=== PATIENT | male | born 1995 | race Two or more races ===

== ENCOUNTER 2017-07-30 18:21 | Emergency (ER) | payer BC ==
[2017-07-30 18:49] VITALS: BP 145/72
[2017-07-30] MEDS ORDERED: cefTRIAXone 1 GM, Lidocaine 1% 2.1 ML IM ONE ×2 (19:24)
--- NOTE | 2017-07-30 19:30 | EDM.PDOC ---
ED HPI GENERAL MEDICAL PROBLEM - General Chief Complaint: General Stated Complaint: LOW MIDDLE BACK PAIN/LUMP Time Seen by Provider: 07/30/17 19:11 Source of Information: Reports: Patient, RN Notes Reviewed History Limitations: Reports: No Limitations - History of Present Illness INITIAL COMMENTS - FREE TEXT/NARRATIVE: 22-year-old gentleman presents emergency department today with complaint of painful lump in his low back states had for last couple days he is not had any fevers it is very tender to touch he has had this one time before that which was opened up and drained - Related Data Allergies Allergy/AdvReac Type Severity Reaction Status Date / Time No Known Allergies Allergy Verified 07/30/17 18:53 Home Meds: Home Meds NK [No Known Home Meds] 07/30/17 [History] Past Medical History HEENT History: Reports: Impaired Vision Psychiatric History: Reports: ADHD Endocrine/Metabolic History: Reports: Obesity/BMI 30+ Dermatologic History: Reports: Other (See Below) Other Dermatologic History: CYSTS ON NECK AND BUTTOCKS - Infectious Disease History Infectious Disease History: Reports: Chicken Pox - Past Surgical History HEENT Surgical History: Reports: Tonsillectomy Social & Family History - Tobacco Use Smoking Status *Q: Never Smoker Second Hand Smoke Exposure: No - Caffeine Use Caffeine Use: Reports: None - Alcohol Use Days Per Week of Alcohol Use: 0 - Recreational Drug Use Recreational Drug Use: No ED ROS GENERAL - Review of Systems Review Of Systems: See Below Constitutional: Denies: Fever, Chills Skin: Reports: Rash, Lesions, Lumps ED EXAM, GENERAL - Physical Exam Exam: See Below Free Text/Narrative:: Examination of the integument system he does have an erythematous area at the top of the gluteal cleft it is exquisitely tender to the touch I don't appreciate any drainage at this time Course - Vital Signs Last Recorded V/S: Last Vital Signs Temp 97.2 F 07/30/17 18:54 Pulse 94 07/30/17 18:54 Resp 16 07/30/17 18:54 BP 145/72 H 07/30/17 18:54 Pulse Ox 97 07/30/17 18:54 - Orders/Labs/Meds Meds: Medications Discontinued Medications Generic Name Dose Route Start Last Admin Trade Name Freq PRN Reason Stop Dose Admin Ceftriaxone Sodium 1 gm/ 0 gm 07/30/17 19:24 Lidocaine HCl 2.1 ml IM 07/30/17 19:25 ONETIME ONE Departure - Departure Time of Disposition: 19:29 Disposition: Home, Self-Care 01 Condition: Good Clinical Impression: Pilonidal cyst - Discharge Information Referrals: PCP,None [Primary Care Provider] - Additional Instructions: Start antibiotics tomorrow, take full course, please follow-up to the essential clinic call tomorrow morning at 7:50 AM, for an appointment time with Dr. Gonzalez general surgery - Assessment/Plan Plan: Assessment Acuity = acute Site and laterality = probable pilonidal cyst Etiology = unclear etiology Manifestations = none Location of injury = Home Lab values = none Plan Given Rocephin 1 g IM 1, prescription written for Keflex 500 mg by mouth 3 times a day 7 days called and discussed the case with Dr. Gonzalez general surgery he agreed to see him in clinic tomorrow morning Patient was in agreement with the plan all questions were answered, they were instructed to return to the emergency department or call for worsening symptoms. This note was dictated using [employer] voice recognition software please call with any questions.
== END 2017-07-30 19:55 | disposition home or self-care (01) ==
LOC: JP.ED 18:21
DX: L05.91 Pilonidal cyst without abscess (principal)
CPT/HCPCS: 96372; 99283; J0696

== ENCOUNTER 2018-03-14 18:31 | Emergency (ER) | payer BC ==
[2018-03-14 19:34] VITALS: BP 110/68
--- NOTE | 2018-03-14 19:59 | EDM.PDOC ---
ED HPI GENERAL MEDICAL PROBLEM - General Chief Complaint: Skin Complaint Stated Complaint: BUMP ON BACK Time Seen by Provider: 03/14/18 19:36 Source of Information: Reports: Patient History Limitations: Reports: No Limitations - History of Present Illness INITIAL COMMENTS - FREE TEXT/NARRATIVE: 22 yo male presents with pain at tail bone that has been present for 6 hours. this has happened twice before most recent he states was a couple years ago and resolved with oral antibiotics. In 2015 he was seen in the ER and it was I+ Ded. denies fever chills or general ill feeling - Related Data Allergies Allergy/AdvReac Type Severity Reaction Status Date / Time No Known Allergies Allergy Verified 03/14/18 19:28 Home Meds: Home Meds NK [No Known Home Meds] 07/30/17 [History] Past Medical History HEENT History: Reports: Impaired Vision Psychiatric History: Reports: ADHD Endocrine/Metabolic History: Reports: Obesity/BMI 30+ Dermatologic History: Reports: Other (See Below) Other Dermatologic History: CYSTS ON NECK AND BUTTOCKS - Infectious Disease History Infectious Disease History: Reports: Chicken Pox - Past Surgical History HEENT Surgical History: Reports: Tonsillectomy Social & Family History - Tobacco Use Smoking Status *Q: Never Smoker - Caffeine Use Caffeine Use: Reports: None ED ROS GENERAL - Review of Systems Review Of Systems: See Below Constitutional: Denies: Fever, Chills, Malaise Respiratory: Denies: Shortness of Breath, Wheezing Cardiovascular: Denies: Chest Pain ED EXAM, SKIN/RASH Exam: See Below Exam Limited By: No Limitations General Appearance: Alert, WD/WN, No Apparent Distress Respiratory/Chest: No Respiratory Distress Skin: Other (moderatly tender 1 cm indurated area at tail bone. no flucuance noted) Course - Vital Signs Last Recorded V/S: Last Vital Signs Temp 36.3 C 03/14/18 19:33 Pulse 78 03/14/18 19:33 Resp 14 03/14/18 19:33 BP 110/68 03/14/18 19:33 Pulse Ox 94 L 03/14/18 19:33 Departure - Departure Time of Disposition: 19:56 Disposition: Home, Self-Care 01 Condition: Good Clinical Impression: Pilonidal cyst - Discharge Information Referrals: PCP,None [Primary Care Provider] - Additional Instructions: if not resolved in 48 hours follow-up with surgeon or primary care provider ice for pain control Keflex 500 mg twice daily for 7 days
== END 2018-03-14 20:08 | disposition home or self-care (01) ==
LOC: JP.ED 18:31
DX: L05.91 Pilonidal cyst without abscess (principal)
CPT/HCPCS: 99283

== ENCOUNTER 2019-02-04 18:14 | Emergency (ER) | payer BC ==
[2019-02-04 19:08] VITALS: BP 143/77
[2019-02-04] MEDS ORDERED: Famotidine 20 MG Tab PO ONE (19:36)
--- NOTE | 2019-02-04 19:40 | EDM.PDOC ---
ED HPI GENERAL MEDICAL PROBLEM - General Chief Complaint: Flank Pain Stated Complaint: SIDE PAIN BOTH SIDES WITH BOWEL MOVEMENT Time Seen by Provider: 02/04/19 19:36 Source of Information: Reports: Patient History Limitations: Reports: No Limitations - History of Present Illness INITIAL COMMENTS - FREE TEXT/NARRATIVE: pt has pain in the flank area when he has a BM. He states his stools have not been different or more frequent. He He states the pain only is happening when he has a bm. He is have alot of acid taste in his throat. This has just started, . He admits to having drainage going down the back of his throat. Onset: Gradual, Other ( The pain on the sides with a bm has just started in the last 2-3 days. ) Duration: Hour(s): Location: Reports: Abdomen Associated Symptoms: Reports: Other (pt has been having normal bms. ) Flank Pain Score (Numeric/FACES): 5 Right Chest Pain Score (Numeric/FACES): 7 - Related Data Allergies Allergy/AdvReac Type Severity Reaction Status Date / Time No Known Allergies Allergy Verified 02/04/19 19:02 Home Meds: Home Meds NK [No Known Home Meds] 07/30/17 [History] Past Medical History HEENT History: Reports: Impaired Vision Gastrointestinal History: Reports: GERD Psychiatric History: Reports: ADHD Endocrine/Metabolic History: Reports: Obesity/BMI 30+ Dermatologic History: Reports: Other (See Below) Other Dermatologic History: CYSTS ON NECK AND BUTTOCKS - Infectious Disease History Infectious Disease History: Reports: Chicken Pox - Past Surgical History HEENT Surgical History: Reports: Tonsillectomy Social & Family History - Tobacco Use Smoking Status *Q: Never Smoker - Caffeine Use Caffeine Use: Reports: None - Recreational Drug Use Recreational Drug Use: No ED ROS GENERAL - Review of Systems Review Of Systems: See Below Constitutional: Reports: No Symptoms HEENT: Reports: No Symptoms Respiratory: Reports: No Symptoms Cardiovascular: Reports: No Symptoms Endocrine: Reports: No Symptoms GI/Abdominal: Reports: Abdominal Pain, Other (pain on the sides when he has a bm. ) : Reports: No Symptoms Musculoskeletal: Reports: No Symptoms Skin: Reports: No Symptoms ED EXAM, GI/ABD - Physical Exam Exam: See Below Text/Narrative:: pt has been having heart burn with a acid feeling in his throat. He has been having pain on the side when he has a bm. This does go away after the bm is finished. His bm has not been different. Exam Limited By: No Limitations General Appearance: Alert, No Apparent Distress, Other (pt is not nauseated. pupils are equal and reactive. ) Ears: Normal TMs Nose: Normal Inspection Throat/Mouth: Normal Inspection Head: Atraumatic Neck: Normal Inspection Respiratory/Chest: No Respiratory Distress Cardiovascular: Regular Rate, Rhythm GI/Abdominal Exam: Soft, Non-Tender, Other (pt is experiencing heart burn. ) (Male) Exam: Deferred Rectal (Males) Exam: Deferred Back Exam: Normal Inspection Extremities: Normal Inspection Neurological: Alert, Oriented, Normal Cognition Psychiatric: Normal Affect Course - Vital Signs Last Recorded V/S: Last Vital Signs Temp 37.0 C 02/04/19 19:07 Pulse 87 02/04/19 19:07 Resp 17 02/04/19 19:07 BP 143/77 H 02/04/19 19:07 Pulse Ox 97 02/04/19 19:07 - Orders/Labs/Meds Labs: Laboratory Tests 02/04/19 02/04/19 02/04/19 Range/Units 19:35 19:35 19:35 WBC 7.4 (4.5-11.0) K/uL RBC 5.31 (4.30-5.90) M/uL Hgb 13.9 (12.0-15.0) g/dL Hct 45.5 (40.0-54.0) % MCV 86 (80-98) fL MCH 26 L (27-31) pg MCHC 31 L (32-36) % Plt Count 343 (150-400) K/uL Neut % (Auto) 67 H (36-66) % Lymph % (Auto) 25 (24-44) % Mcdonald % (Auto) 5 (2-6) % Eos % (Auto) 2 (2-4) % Baso % (Auto) 0 (0-1) % Sodium 139 L (140-148) mmol/L Potassium 4.4 (3.6-5.2) mmol/L Chloride 103 (100-108) mmol/L Carbon Dioxide 26 (21-32) mmol/L Anion Gap 14.4 H (5.0-14.0) mmol/L BUN 14 (7-18) mg/dL Creatinine 0.9 (0.8-1.3) mg/dL Est Cr Clr Drug Dosing 127.65 mL/min Estimated GFR (MDRD) > 60 (>60) Glucose 95 (74-106) mg/dL Calcium 9.0 (8.5-10.1) mg/dL Total Bilirubin 0.2 (0.2-1.0) mg/dL AST 26 (15-37) U/L ALT 50 (12-78) U/L Alkaline Phosphatase 90 (46-116) U/L C-Reactive Protein 1.92 H (0.0-0.3) mg/dL Total Protein 8.0 (6.4-8.2) g/dL Albumin 3.4 (3.4-5.0) g/dL Globulin 4.6 H (2.3-3.5) g/dL Albumin/Globulin Ratio 0.7 L (1.2-2.2) Urine Color Urine Appearance Urine pH (4.5-8.0) Ur Specific Points (1.008-1.030) Urine Protein (NEGATIVE) mg/dL Urine Glucose (UA) (NEGATIVE) mg/dL Urine Ketones (NEGATIVE) mg/dL Urine Occult Blood (NEGATIVE) Urine Nitrite (NEGAITVE) Urine Bilirubin (NEGATIVE) Urine Urobilinogen (NORMAL) mg/dL Ur Leukocyte Esterase (NEGATIVE) Urine RBC (0-5) Urine WBC (0-5) Ur Epithelial Cells Amorphous Sediment Urine Bacteria Urine Mucus 02/04/19 Range/Units 19:52 WBC (4.5-11.0) K/uL RBC (4.30-5.90) M/uL Hgb (12.0-15.0) g/dL Hct (40.0-54.0) % MCV (80-98) fL MCH (27-31) pg MCHC (32-36) % Plt Count (150-400) K/uL Neut % (Auto) (36-66) % Lymph % (Auto) (24-44) % Mcdonald % (Auto) (2-6) % Eos % (Auto) (2-4) % Baso % (Auto) (0-1) % Sodium (140-148) mmol/L Potassium (3.6-5.2) mmol/L Chloride (100-108) mmol/L Carbon Dioxide (21-32) mmol/L Anion Gap (5.0-14.0) mmol/L BUN (7-18) mg/dL Creatinine (0.8-1.3) mg/dL Est Cr Clr Drug Dosing mL/min Estimated GFR (MDRD) (>60) Glucose (74-106) mg/dL Calcium (8.5-10.1) mg/dL Total Bilirubin (0.2-1.0) mg/dL AST (15-37) U/L ALT (12-78) U/L Alkaline Phosphatase (46-116) U/L C-Reactive Protein (0.0-0.3) mg/dL Total Protein (6.4-8.2) g/dL Albumin (3.4-5.0) g/dL Globulin (2.3-3.5) g/dL Albumin/Globulin Ratio (1.2-2.2) Urine Color Yellow Urine Appearance Clear Urine pH 5.0 (4.5-8.0) Ur Specific Points 1.030 (1.008-1.030) Urine Protein Negative (NEGATIVE) mg/dL Urine Glucose (UA) Normal (NEGATIVE) mg/dL Urine Ketones Negative (NEGATIVE) mg/dL Urine Occult Blood Negative (NEGATIVE) Urine Nitrite Negative (NEGAITVE) Urine Bilirubin Negative (NEGATIVE) Urine Urobilinogen Normal (NORMAL) mg/dL Ur Leukocyte Esterase Negative (NEGATIVE) Urine RBC Not seen (0-5) Urine WBC Not seen (0-5) Ur Epithelial Cells Rare Amorphous Sediment Not seen Urine Bacteria Few Urine Mucus Few Meds: Medications Discontinued Medications Generic Name Dose Route Start Last Admin Trade Name Freq PRN Reason Stop Dose Admin Famotidine 20 mg 02/04/19 19:36 02/04/19 19:46 Pepcid PO 02/04/19 19:37 20 mg ONETIME ONE Administration - Re-Assessments/Exams Free Text/Narrative Re-Assessment/Exam: 02/04/19 20:43 pt appeared to be mikldly dehydrated. He had a clear urine. His labs appeared normal. Wbc was normal. He was given pepcid for the heart burn, Departure - Departure Time of Disposition: 20:35 Disposition: Home, Self-Care 01 Condition: Fair Clinical Impression: Heartburn, Spasm of bowel - Discharge Information Referrals: PCP,None [Primary Care Provider] - Forms: ED Department Discharge Care Plan Goals: push fluids, keep bowels regular, use prilosec 20mg daily for heart burn,if side pain is persistent check with regular Dr for further workup.
== END 2019-02-04 20:49 | disposition home or self-care (01) ==
LOC: JP.ED 18:14
DX: R12 Heartburn (principal)
CPT/HCPCS: 36415; 80053; 81001; 85025; 86140; 99284; A9270

== ENCOUNTER 2019-11-27 20:41 | Emergency (ER) | payer BC ==
[2019-11-27 21:08] VITALS: BP 147/79; PULSE 104
--- NOTE | 2019-11-27 21:26 | EDM.PDOC ---
ED HPI GENERAL MEDICAL PROBLEM - General Chief Complaint: Respiratory Problem Stated Complaint: COLD Time Seen by Provider: 11/27/19 21:20 Source of Information: Reports: Patient, RN Notes Reviewed History Limitations: Reports: No Limitations - History of Present Illness INITIAL COMMENTS - FREE TEXT/NARRATIVE: 24-year-old gentleman presents emergency department today with complaint of phlegm production and cough states his been sick for about 2 days no fevers no shortness of breath no chest pain Upper Back Pain Score (Numeric/FACES): 3 - Related Data Allergies Allergy/AdvReac Type Severity Reaction Status Date / Time No Known Allergies Allergy Verified 11/27/19 21:02 Home Meds: Home Meds NK [No Known Home Meds] 07/30/17 [History] Past Medical History HEENT History: Reports: Impaired Vision Gastrointestinal History: Reports: GERD Psychiatric History: Reports: ADHD Endocrine/Metabolic History: Reports: Obesity/BMI 30+ Dermatologic History: Reports: Other (See Below) Other Dermatologic History: CYSTS ON NECK AND BUTTOCKS - Infectious Disease History Infectious Disease History: Reports: Chicken Pox - Past Surgical History HEENT Surgical History: Reports: Tonsillectomy Social & Family History - Tobacco Use Smoking Status *Q: Never Smoker - Caffeine Use Caffeine Use: Reports: Coffee Caffeine Use Comment: occasional coffee - Recreational Drug Use Recreational Drug Use: No ED ROS GENERAL - Review of Systems Review Of Systems: See Below Constitutional: Denies: Fever, Chills HEENT: Reports: No Symptoms Respiratory: Reports: Cough, Sputum. Denies: Shortness of Breath Cardiovascular: Reports: No Symptoms GI/Abdominal: Reports: No Symptoms ED EXAM, GENERAL - Physical Exam Exam: See Below Exam Limited By: No Limitations General Appearance: Alert, WD/WN, No Apparent Distress Ears: Normal External Exam, Normal Canal, Hearing Grossly Normal, Normal TMs Nose: Normal Inspection Throat/Mouth: Normal Inspection, Normal Lips, Normal Teeth, Normal Gums, Normal Oropharynx, Normal Voice, No Airway Compromise Head: Atraumatic, Normocephalic Neck: Normal Inspection, Supple, Non-Tender, Full Range of Motion Respiratory/Chest: No Respiratory Distress, Lungs Clear, Normal Breath Sounds, No Accessory Muscle Use, Chest Non-Tender Cardiovascular: Regular Rate, Rhythm, No Murmur Course - Vital Signs Last Recorded V/S: Last Vital Signs Temp 97.1 F 11/27/19 21:02 Pulse 104 H 11/27/19 21:02 Resp 18 11/27/19 21:02 BP 147/79 H 11/27/19 21:02 Pulse Ox 96 11/27/19 21:02 Departure - Departure Time of Disposition: 21:25 Disposition: Home, Self-Care 01 Condition: Fair Clinical Impression: Viral syndrome - Discharge Information Instructions: Viral Respiratory Infection, [id number] Referrals: PCP,None [Primary Care Provider] - Forms: ED Department Discharge, ED Return to Work/School Form Additional Instructions: Use Tylenol or Motrin as needed for aches and pains try Mucinex for the sputum production, please followup with your primary care provider in 3-5 days if not better, please call return to the emergency department with worsening of symptoms. Sepsis Event Note - Evaluation Sepsis Screening Result: No Definite Risk - Focused Exam Vital Signs: Vital Signs Temp Pulse Resp BP Pulse Ox 11/27/19 21:02 97.1 F 104 H 18 147/79 H 96 Date Exam was Performed: 11/27/19 Time Exam was Performed: 21:23 - Assessment/Plan Plan: Assessment Acuity = acute Site and laterality = viral syndrome Etiology = unknown Manifestations = none Location of injury = Home Lab values = none Plan Symptomatic care follow-up primary care 3 to 5 days if not better This note was dictated using [employer] voice recognition software please call with any questions on syntax or grammar.
== END 2019-11-27 21:30 | disposition home or self-care (01) ==
LOC: JP.ED 20:41
DX: B34.9 Viral infection, unspecified (principal); E66.9 Obesity, unspecified; Z68.44 Body mass index [BMI] 60.0-69.9, adult
CPT/HCPCS: 99283